=== PATIENT | female | born 1995 | race Two or more races ===

== ENCOUNTER 2024-08-18 20:49 | Emergency (ER) | payer MEDICAID ==
[~2024-08-18] VITALS: Ht 152.4 cm; Wt 21.8 kg
[2024-08-18 21:04] VITALS: BP 101/62; PULSE 93; RESP 16; TEMP 98.8; O2SAT 99
[2024-08-18 21:13] LABS: COVID AG,FIA SOURCE NASAL SWAB
[2024-08-18 21:29] LABS: ANION GAP 11 mmol/L (8-16); BASOPHILS % (AUTO) 0.4 % (0.0-2.0); CARBON DIOXIDE 28 mmol/L (22-29); CHLORIDE 99 mmol/L (98-107); EOSINOPHILS % (AUTO) 0.5 % (1.0-6.0); GLOMERULAR FILTR. RATE CALC > 60 mL/min (>60); GLUCOSE,RANDOM 139 mg/dL (70-110); HEMATOCRIT 39.8 % (36-46); HEMOGLOBIN 13.7 g/dL (12.0-16.0); LYMPHOCYTES # (AUTO) 1.3 K/uL (1.0-4.8); MEAN CORPUSCULAR HEMOGLOBIN 30.8 pg (26.0-34.0); MEAN CORPUSCULAR HGB CONC 34.6 G/dL (31.0-37.0); MEAN CORPUSCULAR VOLUME 89 fL (80-100); MONOCYTES # (AUTO) 1.2 K/uL (0.1-1.0); MONOCYTES % (AUTO) 5.6 % (2.0-9.0); NEUTROPHILS # (AUTO) 18.4 K/uL (1.8-7.7); PLATELET COUNT (AUTO) 349 K/uL (150-450); POTASSIUM 3.1 mmol/L (3.5-5.1); RED BLOOD CELL COUNT(AUTO) 4.46 MIL/uL (4.00-5.20); RED CELL DISTRIBUTION WIDTH 12.4 % (11.5-14.5); SODIUM SERUM 138 mmol/L (136-145); UREA NITROGEN, BLOOD 7 mg/dL (7-18)
[2024-08-18 21:30] LABS: NEUTROPHILS % (AUTO) 87.5 % (40.0-70.0)
[2024-08-18 21:36] LABS: SARS-COV2 (COVID) ANTIGEN,FIA Negative (Negative)
[2024-08-18 21:37] LABS: INFLUENZA TYPE A NEGATIVE FOR TYPE A (NEGATIVE); INFLUENZA TYPE B NEGATIVE FOR TYPE B (NEGATIVE)
[2024-08-18] MEDS: CefTRIAXone SODIUM 1 GM/VIAL IM ONE (23:33)
[2024-08-18] MEDS: LIDOCAINE/PF 1% 2 ML VIAL IM ONE (23:34)
[2024-08-18] MEDS ORDERED: AZIT250T9 PO (23:41)
[2024-08-18] MEDS ORDERED: BENZ-227 PO (23:41)
== END 2024-08-18 23:52 | disposition home or self-care (01) ==
LOC: EMS 20:49
DX: J18.0 Bronchopneumonia, unspecified organism (principal); R51.9 Headache, unspecified; Z20.822 Contact with and (suspected) exposure to COVID-19
CPT/HCPCS: 99284; 71045; 87426; 80048; 85025; 87804; 36415; 96372; J0696; J3490